=== PATIENT | female | born 1940 | race Caucasian/White ===

== ENCOUNTER 2017-11-08 09:42 | Emergency (ER) | payer SELFPAY, OTHER, MEDICARE | END 2017-11-08 12:04 | disposition home or self-care (01) | LOC: E/R 09:42 | DX: L53.9 Erythematous condition, unspecified (principal); Z87.891 Personal history of nicotine dependence | CPT/HCPCS: 99282 ==

== ENCOUNTER 2018-10-01 09:57 | Inpatient (IN) | payer BC ==
[2018-10-01 11:42] LABS: WHITE BLOOD COUNT 26.7 10^3/ul (4.8-10.8)
[2018-10-01 11:42] LABS: ABNORMAL IP MESSAGE 1; HEMATOCRIT 31.7 % (37.0-47.0); HEMOGLOBIN 10.1 g/dl (12.0-16.0); MEAN CORPUSCULAR HEMOGLOBIN 28.5 pg (29.0-33.0); MEAN CORPUSCULAR HGB CONC 31.9 g/dl (32.0-37.0); MEAN CORPUSCULAR VOLUME 89.5 fl (82.0-101.0); MEAN PLATELET VOLUME 9.3 fl (7.4-10.4); PLATELET COUNT 404 10^3/UL (140-415); RED BLOOD COUNT 3.54 10^6/ul (4.20-5.40); RED CELL DISTRIBUTION WIDTH 14.5 % (11.5-14.5)
[2018-10-01 11:46] LABS: ADD MAN DIFF? YES; POSITIVE DIFF @See below
[2018-10-01 11:48] LABS: ALANINE AMINOTRANSFERASE 32 IU/L (13-69); ALBUMIN 3.3 g/dl (3.3-4.9); ALBUMIN/GLOBULIN RATIO 0.91; ALKALINE PHOSPHATASE 135 IU/L (42-121); ANION GAP 11 (5-13); ASPARTATE AMINO TRANSFERASE 34 IU/L (15-46); BILIRUBIN,INDIRECT 0.1 mg/dl (0-1.1); BILIRUBIN,TOTAL 0.1 mg/dl (0.2-1.3); BLOOD UREA NITROGEN 30 mg/dl (7-20); CALCIUM 9.8 mg/dl (8.4-10.2); CARBON DIOXIDE 23 mmol/L (21-31); CHLORIDE 106 mmol/L (97-110); CREATININE 1.83 mg/dl (0.44-1.00); GLUCOSE 127 mg/dl (70-220); POTASSIUM 4.2 mmol/L (3.5-5.1); PROTIME 13.3 Sec (11.9-14.9); SODIUM 140 mmol/L (135-144); TOTAL PROTEIN 6.9 g/dl (6.1-8.1)
[2018-10-01 11:49] LABS: PARTIAL THROMBOPLASTIN TIME 27.4 Sec (23.0-35.0)
[2018-10-01 11:59] LABS: LIPASE 2346 U/L (23-300)
[2018-10-01 12:00] LABS: B-TYPE NATRIURETIC PEPTIDE 356 PG/ML (0-450); TROPONIN-I < 0.012 ng/ml (0.000-0.120)
[2018-10-01 12:28] LABS: ANISOCYTOSIS 1+ (0-0); BAND NEUTROPHILS % (M) 4 % (0-4); EOSINOPHILS % (M) 1 % (0-7); LYMPHOCYTES #M 1.3 10^3/ul (0.8-2.9); LYMPHOCYTES % (M) 5 % (15-51); MICROCYTOSIS 1+ (0-0); MONOCYTE #M 0.8 10^3/ul (0.3-0.9); MONOCYTES % (M) 3 % (0-11); PLATELET ESTIMATE NORMAL; POIKILOCYTOSIS 1+ (0-0); POLYCHROMASIA 2+ (0-0); REACTIVE LYMPHOCYTES #M 0.8 10^3/ul (0.0-0.0); REACTIVE LYMPHOCYTES% (M) 3 % (0-0); SEG NEUT #M 22.7 10^3/ul (1.6-7.5); SEGMENTED NEUTROPHILS (M) % 84 % (39-77); SMUDGE%M 2 % (0-0)
[2018-10-01] MEDS: PIPER-TAZO 2.25 GM (PMX) 50 ML IVPB ×2 (13:38→21:45)
[2018-10-01] MEDS: SOD CHLORIDE 0.9% 500 ML IV (13:38)
[2018-10-01] MEDS: FENTAnyl 50 MCG/ML VIAL IV (13:50)
[2018-10-01] MEDS: HYDROmorphONE 0.5 MG/0.5 ML SYG IV ×3 (15:25→23:47)
[2018-10-01] MEDS ORDERED: HYDROmorphONE 0.5 MG/0.5 ML SYG IM (18:30)
[2018-10-01] MEDS: SOD CHLORIDE 0.9% 1,000 ML IV (19:30)
[2018-10-01] MEDS: AMITRIPTYLINE 50 MG TAB PO (21:45)
[2018-10-02] MEDS: SOD CHLORIDE 0.9% 1,000 ML IV ×3 (03:30→19:30)
[2018-10-02] MEDS: HYDROmorphONE 0.5 MG/0.5 ML SYG IV ×3 (04:04→21:01)
[2018-10-02] MEDS: PIPER-TAZO 2.25 GM (PMX) 50 ML IVPB ×3 (06:25→21:01)
[2018-10-02] MEDS: PANTOPRAZOLE (EC) 40 MG TAB PO (06:25)
[2018-10-02 07:05] LABS: LACTATE DEHYDROGENASE 1689 IU/L (313-618)
[2018-10-02 07:12] LABS: ALANINE AMINOTRANSFERASE 42 IU/L (13-69); ALBUMIN 2.6 g/dl (3.3-4.9); ALBUMIN/GLOBULIN RATIO 0.86; ALKALINE PHOSPHATASE 115 IU/L (42-121); ANION GAP 6 (5-13); ASPARTATE AMINO TRANSFERASE 53 IU/L (15-46); BILIRUBIN,INDIRECT 0.1 mg/dl (0-1.1); BILIRUBIN,TOTAL 0.1 mg/dl (0.2-1.3); BLOOD UREA NITROGEN 25 mg/dl (7-20); CALCIUM 8.7 mg/dl (8.4-10.2); CARBON DIOXIDE 22 mmol/L (21-31); CHLORIDE 112 mmol/L (97-110); CREATININE 1.29 mg/dl (0.44-1.00); GLUCOSE 106 mg/dl (70-220); MAGNESIUM 1.6 mg/dl (1.7-2.5); POTASSIUM 4.4 mmol/L (3.5-5.1); SODIUM 140 mmol/L (135-144); TOTAL PROTEIN 5.6 g/dl (6.1-8.1)
[2018-10-02 07:24] LABS: AMYLASE 148 U/L (11-123)
[2018-10-02 07:24] LABS: IRON 26 ug/dl (35-150); LIPASE 909 U/L (23-300)
[2018-10-02 07:33] LABS: % IRON SATURATION 13 % SAT (22-52); TOTAL IRON BINDING CAPACITY 197 ug/dl (241-421)
[2018-10-02 07:55] LABS: CARCINOEMBRYONIC ANTIGEN 8.7 ng/ml (0.0-5.0)
[2018-10-02 07:59] LABS: CANCER ANTIGEN 19-9 53.9 U/ml (0.0-37.0)
[2018-10-02 08:11] LABS: FOLATE 16.5 ng/ml (2.8-20.0)
[2018-10-02] MEDS: MAGNESIUM SULFATE 2 GM/50 ML 50 ML IVPB (08:58)
[2018-10-02 09:29] LABS: ADD MAN DIFF? NO
[2018-10-02 10:18] LABS: WHITE BLOOD COUNT 19.8 10^3/ul (4.8-10.8)
[2018-10-02 10:18] LABS: BASOPHIL # 0.1 10^3/ul (0.0-0.1); BASOPHILS % 0.5 % (0.0-2.0); EOSINOPHILS # 0.6 10^3/ul (0.0-0.5); EOSINOPHILS % 2.9 % (0.0-7.0); HEMATOCRIT 27.4 % (37.0-47.0); HEMOGLOBIN 8.5 g/dl (12.0-16.0); LYMPHOCYTES # 1.3 10^3/ul (0.8-2.9); LYMPHOCYTES % 6.4 % (15.0-51.0); MEAN CORPUSCULAR HEMOGLOBIN 28.3 pg (29.0-33.0); MEAN CORPUSCULAR VOLUME 91.3 fl (82.0-101.0); MEAN PLATELET VOLUME 9.4 fl (7.4-10.4); MONOCYTE # 0.9 10^3/ul (0.3-0.9); MONOCYTES % 4.7 % (0.0-11.0); NEUTROPHIL # 16.8 10^3/ul (1.6-7.5); NEUTROPHILS % 84.7 % (39.0-77.0); PLATELET COUNT 361 10^3/UL (140-415); RED CELL DISTRIBUTION WIDTH 14.6 % (11.5-14.5); RETICULOCYTE COUNT # 0.026 X10^6 (0.020-0.110); RETICULOCYTE COUNT % 0.9 % (0.5-1.5)
[2018-10-02] MEDS: LIDOCAINE 1% (MPF) 5 ML VIAL (15:37)
[2018-10-02] MEDS: AMITRIPTYLINE 50 MG TAB PO (21:01)
[2018-10-03] MEDS: morphine 4 MG/ML VIAL IV ×5 (00:15→22:17)
[2018-10-03] MEDS: SOD CHLORIDE 0.9% 1,000 ML IV ×3 (00:18→19:30)
[2018-10-03 06:22] LABS: ADD MAN DIFF? NO
[2018-10-03 06:28] LABS: BASOPHIL # 0.1 10^3/ul (0.0-0.1); BASOPHILS % 0.3 % (0.0-2.0); EOSINOPHILS # 0.5 10^3/ul (0.0-0.5); EOSINOPHILS % 2.6 % (0.0-7.0); HEMATOCRIT 24.2 % (37.0-47.0); HEMOGLOBIN 7.8 g/dl (12.0-16.0); LYMPHOCYTES # 1.1 10^3/ul (0.8-2.9); LYMPHOCYTES % 6.2 % (15.0-51.0); MEAN CORPUSCULAR HEMOGLOBIN 28.5 pg (29.0-33.0); MEAN CORPUSCULAR HGB CONC 32.2 g/dl (32.0-37.0); MEAN CORPUSCULAR VOLUME 88.3 fl (82.0-101.0); MEAN PLATELET VOLUME 9.1 fl (7.4-10.4); MONOCYTE # 0.9 10^3/ul (0.3-0.9); MONOCYTES % 5.1 % (0.0-11.0); NEUTROPHIL # 15.3 10^3/ul (1.6-7.5); PLATELET COUNT 328 10^3/UL (140-415); RED BLOOD COUNT 2.74 10^6/ul (4.20-5.40); RED CELL DISTRIBUTION WIDTH 14.7 % (11.5-14.5)
[2018-10-03] MEDS: PIPER-TAZO 2.25 GM (PMX) 50 ML IVPB ×3 (06:30→21:06)
[2018-10-03] MEDS: PANTOPRAZOLE (EC) 40 MG TAB PO (06:30)
[2018-10-03 06:53] LABS: ALANINE AMINOTRANSFERASE 64 IU/L (13-69); ALBUMIN 2.3 g/dl (3.3-4.9); ALBUMIN/GLOBULIN RATIO 0.85; ALKALINE PHOSPHATASE 139 IU/L (42-121); ANION GAP 6 (5-13); ASPARTATE AMINO TRANSFERASE 115 IU/L (15-46); BILIRUBIN,INDIRECT 0.1 mg/dl (0-1.1); BILIRUBIN,TOTAL 0.1 mg/dl (0.2-1.3); BLOOD UREA NITROGEN 16 mg/dl (7-20); CALCIUM 8.3 mg/dl (8.4-10.2); CARBON DIOXIDE 22 mmol/L (21-31); CHLORIDE 115 mmol/L (97-110); CREATININE 1.02 mg/dl (0.44-1.00); GLUCOSE 124 mg/dl (70-220); LACTATE DEHYDROGENASE 1795 IU/L (313-618); LIPASE 1018 U/L (23-300); MAGNESIUM 1.7 mg/dl (1.7-2.5); POTASSIUM 3.8 mmol/L (3.5-5.1); SODIUM 143 mmol/L (135-144)
[2018-10-03] MEDS ORDERED: morphine LIQ (20 MG/ML PO SYG) SL (09:00)
[2018-10-03] MEDS: MAGNESIUM SULFATE 2 GM/50 ML 50 ML IVPB (10:08)
[2018-10-03 10:22] LABS: RETICULOCYTE RBC 3.01
[2018-10-03] MEDS: PROMETHAZINE/CODEINE 5ML CUP PO (17:17)
[2018-10-03] MEDS: AMITRIPTYLINE 50 MG TAB PO (21:05)
[2018-10-03] MEDS: ACETAMINOPHEN 500 MG TAB PO (23:09)
[2018-10-03 23:26] LABS: IMMEDIATE SPIN CROSSMATCH 1 2
[2018-10-04] MEDS: SOD CHLORIDE 0.9% 1,000 ML IV ×3 (03:30→21:18)
[2018-10-04] MEDS: PIPER-TAZO 2.25 GM (PMX) 50 ML IVPB ×3 (05:05→21:23)
[2018-10-04] MEDS: PANTOPRAZOLE (EC) 40 MG TAB PO (06:31)
[2018-10-04 06:53] LABS: ADD MAN DIFF? NO
[2018-10-04 07:00] LABS: BASOPHIL # 0.1 10^3/ul (0.0-0.1); BASOPHILS % 0.6 % (0.0-2.0); EOSINOPHILS # 0.7 10^3/ul (0.0-0.5); EOSINOPHILS % 3.6 % (0.0-7.0); HEMATOCRIT 35.2 % (37.0-47.0); HEMOGLOBIN 11.4 g/dl (12.0-16.0); LYMPHOCYTES # 1.2 10^3/ul (0.8-2.9); LYMPHOCYTES % 6.7 % (15.0-51.0); MEAN CORPUSCULAR HEMOGLOBIN 28.8 pg (29.0-33.0); MEAN CORPUSCULAR HGB CONC 32.4 g/dl (32.0-37.0); MEAN CORPUSCULAR VOLUME 88.9 fl (82.0-101.0); MEAN PLATELET VOLUME 8.9 fl (7.4-10.4); MONOCYTES % 5.6 % (0.0-11.0); NEUTROPHIL # 14.8 10^3/ul (1.6-7.5); NEUTROPHILS % 82.2 % (39.0-77.0); PLATELET COUNT 319 10^3/UL (140-415); RED BLOOD COUNT 3.96 10^6/ul (4.20-5.40); RED CELL DISTRIBUTION WIDTH 14.4 % (11.5-14.5)
[2018-10-04 07:21] LABS: ALANINE AMINOTRANSFERASE 122 IU/L (13-69); ALBUMIN 2.3 g/dl (3.3-4.9); ALBUMIN/GLOBULIN RATIO 0.88; ALKALINE PHOSPHATASE 183 IU/L (42-121); AMYLASE 200 U/L (11-123); ANION GAP 3 (5-13); ASPARTATE AMINO TRANSFERASE 193 IU/L (15-46); BILIRUBIN,INDIRECT 0.5 mg/dl (0-1.1); BILIRUBIN,TOTAL 0.5 mg/dl (0.2-1.3); BLOOD UREA NITROGEN 10 mg/dl (7-20); CALCIUM 8.1 mg/dl (8.4-10.2); CARBON DIOXIDE 22 mmol/L (21-31); CHLORIDE 113 mmol/L (97-110); CREATININE 0.76 mg/dl (0.44-1.00); GLUCOSE 89 mg/dl (70-220); LIPASE 1476 U/L (23-300); MAGNESIUM 1.6 mg/dl (1.7-2.5); POTASSIUM 3.4 mmol/L (3.5-5.1); SODIUM 138 mmol/L (135-144); TOTAL PROTEIN 4.9 g/dl (6.1-8.1)
[2018-10-04 07:36] LABS: LACTATE DEHYDROGENASE 2063 IU/L (313-618)
[2018-10-04 10:27] LABS: HAPTOGLOBIN 408 mg/dL (43-212); HAPTOGLOBIN 424 mg/dL (43-212)
[2018-10-04] MEDS: morphine 4 MG/ML VIAL IV (10:46)
[2018-10-04] MEDS: MAGNESIUM SULFATE 2 GM/50 ML 50 ML IVPB (12:39)
[2018-10-04 15:12] LABS: PROTEIN, TOTAL 5.1 g/dL (6.1-8.1)
[2018-10-04] MEDS: morphine LIQ (10 MG/5 ML) CUP PO ×3 (15:28→22:04)
[2018-10-04] MEDS: AMITRIPTYLINE 50 MG TAB PO (21:21)
[2018-10-04 22:58] LABS: ALBUMIN 2.3 g/dL (3.8-4.8); ALPHA-1-GLOBULINS 0.5 g/dL (0.2-0.3); ALPHA-2-GLOBULINS 0.9 g/dL (0.5-0.9); BETA 2 GLOBULINS 0.3 g/dL (0.2-0.5); BETA GLOBULINS 0.4 g/dL (0.4-0.6); GAMMA GLOBULINS 0.7 g/dL (0.8-1.7)
[2018-10-05] MEDS: SOD CHLORIDE 0.9% 1,000 ML IV ×2 (00:02→03:30)
[2018-10-05] MEDS: PROMETHAZINE/CODEINE 5ML CUP PO (00:05)
[2018-10-05] MEDS: morphine LIQ (10 MG/5 ML) CUP PO ×6 (02:06→21:23)
[2018-10-05] MEDS: PIPER-TAZO 2.25 GM (PMX) 50 ML IVPB ×3 (05:06→21:22)
[2018-10-05 06:28] LABS: ADD MAN DIFF? NO
[2018-10-05 06:30] LABS: BASOPHIL # 0.1 10^3/ul (0.0-0.1); BASOPHILS % 0.4 % (0.0-2.0); EOSINOPHILS # 0.6 10^3/ul (0.0-0.5); EOSINOPHILS % 2.5 % (0.0-7.0); HEMATOCRIT 34.6 % (37.0-47.0); HEMOGLOBIN 11.2 g/dl (12.0-16.0); LYMPHOCYTES # 1.1 10^3/ul (0.8-2.9); LYMPHOCYTES % 5.1 % (15.0-51.0); MEAN CORPUSCULAR HEMOGLOBIN 28.4 pg (29.0-33.0); MEAN CORPUSCULAR HGB CONC 32.4 g/dl (32.0-37.0); MEAN CORPUSCULAR VOLUME 87.8 fl (82.0-101.0); MEAN PLATELET VOLUME 9.2 fl (7.4-10.4); MONOCYTE # 1.2 10^3/ul (0.3-0.9); MONOCYTES % 5.3 % (0.0-11.0); NEUTROPHIL # 19.2 10^3/ul (1.6-7.5); NEUTROPHILS % 85.4 % (39.0-77.0); PLATELET COUNT 329 10^3/UL (140-415); RED BLOOD COUNT 3.94 10^6/ul (4.20-5.40); RED CELL DISTRIBUTION WIDTH 14.5 % (11.5-14.5)
[2018-10-05 06:30] LABS: WHITE BLOOD COUNT 22.5 10^3/ul (4.8-10.8)
[2018-10-05 06:53] LABS: ALANINE AMINOTRANSFERASE 106 IU/L (13-69); ALBUMIN 2.5 g/dl (3.3-4.9); ALBUMIN/GLOBULIN RATIO 0.92; ALKALINE PHOSPHATASE 180 IU/L (42-121); AMYLASE 197 U/L (11-123); ANION GAP 6 (5-13); ASPARTATE AMINO TRANSFERASE 124 IU/L (15-46); BILIRUBIN,INDIRECT 0.5 mg/dl (0-1.1); BILIRUBIN,TOTAL 0.5 mg/dl (0.2-1.3); BLOOD UREA NITROGEN 6 mg/dl (7-20); CALCIUM 7.7 mg/dl (8.4-10.2); CARBON DIOXIDE 22 mmol/L (21-31); CHLORIDE 109 mmol/L (97-110); CREATININE 0.64 mg/dl (0.44-1.00); GLUCOSE 147 mg/dl (70-220); LIPASE 1660 U/L (23-300); MAGNESIUM 1.5 mg/dl (1.7-2.5); POTASSIUM 3.5 mmol/L (3.5-5.1); SODIUM 137 mmol/L (135-144); TOTAL PROTEIN 5.2 g/dl (6.1-8.1)
[2018-10-05] MEDS: PANTOPRAZOLE (EC) 40 MG TAB PO (07:25)
[2018-10-05] MEDS: MAGNESIUM SULFATE 3 GM in DEXTROSE 5% 100 ML IVPB (11:00)
[2018-10-05] MEDS: AMITRIPTYLINE 50 MG TAB PO (20:20)
[2018-10-06 00:52] LABS: ERYTHROPOIETIN 21.6 mIU/mL (2.6-18.5); ERYTHROPOIETIN 32.3 mIU/mL (2.6-18.5)
[2018-10-06] MEDS: morphine LIQ (10 MG/5 ML) CUP PO ×6 (02:49→20:12)
[2018-10-06] MEDS: PIPER-TAZO 2.25 GM (PMX) 50 ML IVPB ×3 (05:29→21:40)
[2018-10-06 06:35] LABS: ADD MAN DIFF? NO
[2018-10-06 06:45] LABS: ABNORMAL IP MESSAGE 1; BASOPHIL # 0.1 10^3/ul (0.0-0.1); BASOPHILS % 0.5 % (0.0-2.0); EOSINOPHILS # 0.3 10^3/ul (0.0-0.5); EOSINOPHILS % 1.2 % (0.0-7.0); HEMATOCRIT 34.5 % (37.0-47.0); HEMOGLOBIN 11.2 g/dl (12.0-16.0); LYMPHOCYTES % 3.8 % (15.0-51.0); MEAN CORPUSCULAR HEMOGLOBIN 28.7 pg (29.0-33.0); MEAN CORPUSCULAR HGB CONC 32.5 g/dl (32.0-37.0); MEAN CORPUSCULAR VOLUME 88.5 fl (82.0-101.0); MEAN PLATELET VOLUME 9.6 fl (7.4-10.4); MONOCYTE # 1.3 10^3/ul (0.3-0.9); MONOCYTES % 4.9 % (0.0-11.0); NEUTROPHIL # 23.5 10^3/ul (1.6-7.5); NEUTROPHILS % 88.2 % (39.0-77.0); PLATELET COUNT 324 10^3/UL (140-415); RED CELL DISTRIBUTION WIDTH 14.6 % (11.5-14.5)
[2018-10-06 06:45] LABS: WHITE BLOOD COUNT 26.6 10^3/ul (4.8-10.8)
[2018-10-06 06:48] LABS: POSITIVE DIFF @See below
[2018-10-06 07:18] LABS: ALANINE AMINOTRANSFERASE 90 IU/L (13-69); ALBUMIN 2.5 g/dl (3.3-4.9); ALBUMIN/GLOBULIN RATIO 0.92; ALKALINE PHOSPHATASE 233 IU/L (42-121); AMYLASE 137 U/L (11-123); ANION GAP 7 (5-13); ASPARTATE AMINO TRANSFERASE 90 IU/L (15-46); BILIRUBIN,INDIRECT 0.4 mg/dl (0-1.1); BILIRUBIN,TOTAL 0.4 mg/dl (0.2-1.3); BLOOD UREA NITROGEN 5 mg/dl (7-20); CALCIUM 8.1 mg/dl (8.4-10.2); CARBON DIOXIDE 25 mmol/L (21-31); CHLORIDE 109 mmol/L (97-110); CREATININE 0.61 mg/dl (0.44-1.00); GLUCOSE 95 mg/dl (70-220); LIPASE 722 U/L (23-300); MAGNESIUM 1.7 mg/dl (1.7-2.5); POTASSIUM 3.3 mmol/L (3.5-5.1); SODIUM 141 mmol/L (135-144); TOTAL PROTEIN 5.2 g/dl (6.1-8.1)
[2018-10-06] MEDS: POTASSIUM CHLORIDE 20 MEQ POWDER FOR ORAL SOLN PO (10:11)
[2018-10-06] MEDS: morphine 4 MG/ML VIAL IV ×2 (17:25→21:30)
[2018-10-06] MEDS: AMITRIPTYLINE 50 MG TAB PO (20:11)
[2018-10-06 23:00] LABS: ADD UMIC YES; UR ASCORBIC ACID NEGATIVE (NEGATIVE); UR BILIRUBIN (Dip) NEGATIVE (NEGATIVE); UR BLOOD (Dip) NEGATIVE (NEGATIVE); UR CLARITY SLIGHTLY CLOUDY (CLEAR); UR COLOR YELLOW (YELLOW); UR GLUCOSE (Dip) NEGATIVE (NEGATIVE); UR KETONES (Dip) NEGATIVE (NEGATIVE); UR LEUKOCYTE ESTERASE (Dip) 1+ Leu/ul (NEGATIVE); UR MUCUS FEW /HPF (NONE SEEN); UR NITRITE (Dip) NEGATIVE (NEGATIVE); UR RBC 3 /HPF (0-5); UR SPECIFIC GRAVITY (Dip) 1.018 (1.003-1.030); UR SQUAMOUS EPITHELIAL CELL FEW /HPF (FEW); UR TOTAL PROTEIN (Dip) 1+ mg/dl (NEGATIVE); UR UROBILINOGEN (Dip) NEGATIVE (NEGATIVE); UR WBC 16 /HPF (0-5)
[2018-10-06] MEDS: PIPER-TAZO 3.375 GM IV (PMX) 100 ML IVPB (23:02)
[2018-10-07] MEDS: morphine LIQ (10 MG/5 ML) CUP PO ×5 (01:25→21:16)
[2018-10-07] MEDS: morphine 4 MG/ML VIAL IV ×4 (03:01→19:09)
[2018-10-07] MEDS: PIPER-TAZO 3.375 GM IV (PMX) 100 ML IVPB ×3 (05:20→21:07)
[2018-10-07 06:42] LABS: WHITE BLOOD COUNT 33.2 10^3/ul (4.8-10.8)
[2018-10-07 06:42] LABS: ABNORMAL IP MESSAGE 1; HEMATOCRIT 34.6 % (37.0-47.0); MEAN CORPUSCULAR HEMOGLOBIN 28.9 pg (29.0-33.0); MEAN CORPUSCULAR HGB CONC 31.8 g/dl (32.0-37.0); MEAN CORPUSCULAR VOLUME 90.8 fl (82.0-101.0); MEAN PLATELET VOLUME 9.4 fl (7.4-10.4); PLATELET COUNT 349 10^3/UL (140-415); RED BLOOD COUNT 3.81 10^6/ul (4.20-5.40); RED CELL DISTRIBUTION WIDTH 14.9 % (11.5-14.5)
[2018-10-07 06:52] LABS: POSITIVE DIFF @See below
[2018-10-07 06:53] LABS: ADD MAN DIFF? YES
[2018-10-07 06:59] LABS: ALANINE AMINOTRANSFERASE 57 IU/L (13-69); ALBUMIN 2.7 g/dl (3.3-4.9); ALBUMIN/GLOBULIN RATIO 0.96; ALKALINE PHOSPHATASE 200 IU/L (42-121); AMYLASE 125 U/L (11-123); ANION GAP 6 (5-13); ASPARTATE AMINO TRANSFERASE 45 IU/L (15-46); BILIRUBIN,INDIRECT 0.3 mg/dl (0-1.1); BILIRUBIN,TOTAL 0.3 mg/dl (0.2-1.3); BLOOD UREA NITROGEN 6 mg/dl (7-20); CALCIUM 8.4 mg/dl (8.4-10.2); CARBON DIOXIDE 29 mmol/L (21-31); CHLORIDE 103 mmol/L (97-110); CREATININE 0.57 mg/dl (0.44-1.00); GLUCOSE 119 mg/dl (70-220); LIPASE 735 U/L (23-300); POTASSIUM 3.5 mmol/L (3.5-5.1); SODIUM 138 mmol/L (135-144); TOTAL PROTEIN 5.5 g/dl (6.1-8.1)
[2018-10-07 09:25] LABS: ANISOCYTOSIS 1+ (0-0); BAND NEUTROPHILS #M 1.3 10^3/ul (0.0-0.6); BAND NEUTROPHILS % (M) 4 % (0-4); BURR CELLS 3+ (0-0); EOSINOPHILS % (M) 1 % (0-7); LYMPHOCYTES #M 1.6 10^3/ul (0.8-2.9); LYMPHOCYTES % (M) 5 % (15-51); MONOCYTE #M 1.6 10^3/ul (0.3-0.9); MONOCYTES % (M) 5 % (0-11); PLATELET ESTIMATE NORMAL; POIKILOCYTOSIS 3+ (0-0); POLYCHROMASIA 3+ (0-0); REACTIVE LYMPHOCYTES #M 0.3 10^3/ul (0.0-0.0); REACTIVE LYMPHOCYTES% (M) 1 % (0-0); SEG NEUT #M 28.3 10^3/ul (1.6-7.5); SEGMENTED NEUTROPHILS (M) % 84 % (39-77)
[2018-10-07] MEDS: hydrOXYzine HCL 25 MG TAB PO ×2 (17:51→21:07)
[2018-10-07] MEDS: AMITRIPTYLINE 50 MG TAB PO (21:52)
[2018-10-08] MEDS: morphine 4 MG/ML VIAL IV ×3 (02:30→12:05)
[2018-10-08] MEDS: LEVALBUTEROL (NEB) 0.31 MG/3 ML AMP HHN (02:33)
[2018-10-08] MEDS: PIPER-TAZO 3.375 GM IV (PMX) 100 ML IVPB ×3 (06:03→21:51)
[2018-10-08 06:29] LABS: WHITE BLOOD COUNT 30.3 10^3/ul (4.8-10.8)
[2018-10-08 06:29] LABS: ABNORMAL IP MESSAGE 1; HEMATOCRIT 32.2 % (37.0-47.0); HEMOGLOBIN 10.4 g/dl (12.0-16.0); MEAN CORPUSCULAR HEMOGLOBIN 29.1 pg (29.0-33.0); MEAN CORPUSCULAR HGB CONC 32.3 g/dl (32.0-37.0); MEAN CORPUSCULAR VOLUME 89.9 fl (82.0-101.0); MEAN PLATELET VOLUME 9.2 fl (7.4-10.4); PLATELET COUNT 333 10^3/UL (140-415); RED BLOOD COUNT 3.58 10^6/ul (4.20-5.40); RED CELL DISTRIBUTION WIDTH 14.9 % (11.5-14.5)
[2018-10-08 06:49] LABS: ADD MAN DIFF? YES; POSITIVE DIFF @See below
[2018-10-08 07:09] LABS: ALANINE AMINOTRANSFERASE 47 IU/L (13-69); ALBUMIN 2.5 g/dl (3.3-4.9); ALBUMIN/GLOBULIN RATIO 0.92; ALKALINE PHOSPHATASE 175 IU/L (42-121); AMYLASE 116 U/L (11-123); ANION GAP 5 (5-13); ASPARTATE AMINO TRANSFERASE 30 IU/L (15-46); BILIRUBIN,INDIRECT 0.2 mg/dl (0-1.1); BILIRUBIN,TOTAL 0.2 mg/dl (0.2-1.3); BLOOD UREA NITROGEN 7 mg/dl (7-20); CALCIUM 8.2 mg/dl (8.4-10.2); CARBON DIOXIDE 29 mmol/L (21-31); CHLORIDE 105 mmol/L (97-110); CREATININE 0.52 mg/dl (0.44-1.00); GLUCOSE 112 mg/dl (70-220); LIPASE 629 U/L (23-300); POTASSIUM 3.2 mmol/L (3.5-5.1); SODIUM 139 mmol/L (135-144); TOTAL PROTEIN 5.2 g/dl (6.1-8.1)
[2018-10-08 07:50] LABS: ANISOCYTOSIS 1+ (0-0); BAND NEUTROPHILS #M 0.6 10^3/ul (0.0-0.6); BAND NEUTROPHILS % (M) 2 % (0-4); BURR CELLS 1+ (0-0); EOSINOPHILS % (M) 1 % (0-7); LYMPHOCYTES #M 0.9 10^3/ul (0.8-2.9); LYMPHOCYTES % (M) 3 % (15-51); MICROCYTOSIS 1+ (0-0); MONOCYTE #M 2.1 10^3/ul (0.3-0.9); MONOCYTES % (M) 7 % (0-11); PLATELET ESTIMATE NORMAL; POLYCHROMASIA 1+ (0-0); REACTIVE LYMPHOCYTES #M 0.6 10^3/ul (0.0-0.0); REACTIVE LYMPHOCYTES% (M) 2 % (0-0); SEG NEUT #M 25.9 10^3/ul (1.6-7.5); SEGMENTED NEUTROPHILS (M) % 85 % (39-77); SMUDGE%M 9 % (0-0)
[2018-10-08] MEDS: hydrOXYzine HCL 25 MG TAB PO ×3 (08:17→20:33)
[2018-10-08] MEDS: MAGNESIUM SULFATE 2 GM/50 ML 50 ML IVPB (12:06)
[2018-10-08] MEDS: POTASSIUM CHLORIDE (SR) 10 MEQ TAB PO (12:09)
[2018-10-08] MEDS ORDERED: DEXAMETHASONE 10 MG/ML 1 ML INJ IV (14:30)
[2018-10-08] MEDS: METHADONE (1 MG/ML 5 ML PO UD SYG) PO ×2 (15:12→20:34)
[2018-10-08] MEDS: METHYLNALTREXONE 12 MG/0.6 ML VIAL SC (15:12)
[2018-10-08] MEDS: HYDROmorphONE 1 MG/ML SYG IV ×2 (18:13→21:51)
[2018-10-08] MEDS: DEXAMETHASONE 4 MG/ML 1 ML INJ IV ×2 (18:22→20:34)
[2018-10-08] MEDS: AMITRIPTYLINE 50 MG TAB PO (20:33)
[2018-10-08] MEDS: SENNA/DOCUSATE NA (8.6MG/50MG) TAB PO (20:33)
[2018-10-09] MEDS: DEXAMETHASONE 4 MG/ML 1 ML INJ IV ×4 (00:27→20:37)
[2018-10-09] MEDS: HYDROmorphONE 1 MG/ML SYG IV ×4 (01:34→23:08)
[2018-10-09] MEDS: METHADONE (1 MG/ML 5 ML PO UD SYG) PO ×4 (03:54→20:37)
[2018-10-09] MEDS: PIPER-TAZO 3.375 GM IV (PMX) 100 ML IVPB ×3 (06:24→23:08)
[2018-10-09 07:54] LABS: WHITE BLOOD COUNT 39.6 10^3/ul (4.8-10.8)
[2018-10-09 07:54] LABS: ABNORMAL IP MESSAGE 1; HEMATOCRIT 34.9 % (37.0-47.0); MEAN CORPUSCULAR HEMOGLOBIN 28.6 pg (29.0-33.0); MEAN CORPUSCULAR HGB CONC 31.5 g/dl (32.0-37.0); MEAN CORPUSCULAR VOLUME 90.6 fl (82.0-101.0); MEAN PLATELET VOLUME 9.5 fl (7.4-10.4); PLATELET COUNT 405 10^3/UL (140-415); RED BLOOD COUNT 3.85 10^6/ul (4.20-5.40); RED CELL DISTRIBUTION WIDTH 15.2 % (11.5-14.5)
[2018-10-09 08:01] LABS: POSITIVE DIFF @See below
[2018-10-09 08:02] LABS: ADD MAN DIFF? YES
[2018-10-09 08:21] LABS: ALANINE AMINOTRANSFERASE 39 IU/L (13-69); ALBUMIN/GLOBULIN RATIO 0.93; ALKALINE PHOSPHATASE 211 IU/L (42-121); ANION GAP 8 (5-13); ASPARTATE AMINO TRANSFERASE 35 IU/L (15-46); BILIRUBIN,INDIRECT 0.2 mg/dl (0-1.1); BILIRUBIN,TOTAL 0.2 mg/dl (0.2-1.3); BLOOD UREA NITROGEN 12 mg/dl (7-20); CALCIUM 9.2 mg/dl (8.4-10.2); CARBON DIOXIDE 27 mmol/L (21-31); CHLORIDE 104 mmol/L (97-110); CREATININE 0.53 mg/dl (0.44-1.00); GLUCOSE 156 mg/dl (70-220); LIPASE 387 U/L (23-300); MAGNESIUM 1.6 mg/dl (1.7-2.5); SODIUM 139 mmol/L (135-144); TOTAL PROTEIN 6.2 g/dl (6.1-8.1)
[2018-10-09] MEDS: hydrOXYzine HCL 25 MG TAB PO ×3 (09:27→20:36)
[2018-10-09 09:44] LABS: ANISOCYTOSIS 1+ (0-0); BAND NEUTROPHILS #M 2.7 10^3/ul (0.0-0.6); BAND NEUTROPHILS % (M) 7 % (0-4); BURR CELLS 2+ (0-0); LYMPHOCYTES #M 0.3 10^3/ul (0.8-2.9); LYMPHOCYTES % (M) 1 % (15-51); MONOCYTE #M 0.7 10^3/ul (0.3-0.9); MONOCYTES % (M) 2 % (0-11); PLATELET ESTIMATE NORMAL; POIKILOCYTOSIS 2+ (0-0); POLYCHROMASIA 1+ (0-0); SEG NEUT #M 36.7 10^3/ul (1.6-7.5); SEGMENTED NEUTROPHILS (M) % 90 % (39-77); SMUDGE%M 1 % (0-0)
[2018-10-09] MEDS: MAGNESIUM SULFATE 3 GM in DEXTROSE 5% 100 ML IVPB (14:43)
[2018-10-09] MEDS: AMITRIPTYLINE 50 MG TAB PO (20:35)
[2018-10-09] MEDS: SENNA/DOCUSATE NA (8.6MG/50MG) TAB PO (20:36)
[2018-10-10] MEDS: DEXAMETHASONE 4 MG/ML 1 ML INJ IV ×5 (00:52→23:12)
[2018-10-10] MEDS: METHADONE (1 MG/ML 5 ML PO UD SYG) PO ×4 (03:32→20:02)
[2018-10-10] MEDS: HYDROmorphONE 1 MG/ML SYG IV ×6 (03:43→23:12)
[2018-10-10] MEDS: PIPER-TAZO 3.375 GM IV (PMX) 100 ML IVPB ×3 (05:57→21:02)
[2018-10-10 06:53] LABS: WHITE BLOOD COUNT 40.8 10^3/ul (4.8-10.8)
[2018-10-10 06:53] LABS: ABNORMAL IP MESSAGE 1; HEMATOCRIT 30.6 % (37.0-47.0); HEMOGLOBIN 9.8 g/dl (12.0-16.0); MEAN CORPUSCULAR VOLUME 90.5 fl (82.0-101.0); MEAN PLATELET VOLUME 9.3 fl (7.4-10.4); PLATELET COUNT 367 10^3/UL (140-415); RED BLOOD COUNT 3.38 10^6/ul (4.20-5.40); RED CELL DISTRIBUTION WIDTH 14.8 % (11.5-14.5)
[2018-10-10 07:00] LABS: POSITIVE DIFF @See below
[2018-10-10 07:01] LABS: ADD MAN DIFF? YES
[2018-10-10 07:23] LABS: ALANINE AMINOTRANSFERASE 35 IU/L (13-69); ALBUMIN 2.6 g/dl (3.3-4.9); ALBUMIN/GLOBULIN RATIO 0.89; ALKALINE PHOSPHATASE 159 IU/L (42-121); ANION GAP 6 (5-13); ASPARTATE AMINO TRANSFERASE 29 IU/L (15-46); BILIRUBIN,INDIRECT 0.1 mg/dl (0-1.1); BILIRUBIN,TOTAL 0.1 mg/dl (0.2-1.3); BLOOD UREA NITROGEN 20 mg/dl (7-20); CALCIUM 8.8 mg/dl (8.4-10.2); CARBON DIOXIDE 34 mmol/L (21-31); CHLORIDE 101 mmol/L (97-110); CREATININE 0.65 mg/dl (0.44-1.00); GLUCOSE 158 mg/dl (70-220); LIPASE 696 U/L (23-300); MAGNESIUM 2.2 mg/dl (1.7-2.5); POTASSIUM 4.3 mmol/L (3.5-5.1); SODIUM 141 mmol/L (135-144); TOTAL PROTEIN 5.5 g/dl (6.1-8.1)
[2018-10-10] MEDS: hydrOXYzine HCL 25 MG TAB PO ×3 (08:52→20:01)
[2018-10-10 09:33] LABS: ANISOCYTOSIS 1+ (0-0); BAND NEUTROPHILS #M 3.2 10^3/ul (0.0-0.6); BAND NEUTROPHILS % (M) 8 % (0-4); BURR CELLS 1+ (0-0); LYMPHOCYTES #M 0.8 10^3/ul (0.8-2.9); LYMPHOCYTES % (M) 2 % (15-51); MONOCYTE #M 1.2 10^3/ul (0.3-0.9); MONOCYTES % (M) 3 % (0-11); PLATELET ESTIMATE NORMAL; POIKILOCYTOSIS 1+ (0-0); REACTIVE LYMPHOCYTES #M 0.8 10^3/ul (0.0-0.0); REACTIVE LYMPHOCYTES% (M) 2 % (0-0); SEGMENTED NEUTROPHILS (M) % 85 % (39-77); SMUDGE%M 11 % (0-0); TOXIC GRANULATION 1+ (0-0)
[2018-10-10] MEDS: METHYLNALTREXONE 12 MG/0.6 ML VIAL SC (15:11)
[2018-10-10] MEDS: SENNA/DOCUSATE NA (8.6MG/50MG) TAB PO (20:00)
[2018-10-10] MEDS: AMITRIPTYLINE 50 MG TAB PO (20:00)
[2018-10-11] MEDS: PIPER-TAZO 3.375 GM IV (PMX) 100 ML IVPB ×3 (05:54→20:10)
[2018-10-11] MEDS: METHADONE (1 MG/ML 5 ML PO UD SYG) PO ×4 (05:54→20:10)
[2018-10-11] MEDS: DEXAMETHASONE 4 MG/ML 1 ML INJ IV ×4 (05:55→23:55)
[2018-10-11 06:29] LABS: ABNORMAL IP MESSAGE 1; HEMATOCRIT 33.6 % (37.0-47.0); HEMOGLOBIN 10.7 g/dl (12.0-16.0); MEAN CORPUSCULAR HEMOGLOBIN 28.9 pg (29.0-33.0); MEAN CORPUSCULAR HGB CONC 31.8 g/dl (32.0-37.0); MEAN CORPUSCULAR VOLUME 90.8 fl (82.0-101.0); MEAN PLATELET VOLUME 9.3 fl (7.4-10.4); PLATELET COUNT 398 10^3/UL (140-415)
[2018-10-11 06:29] LABS: WHITE BLOOD COUNT 43.1 10^3/ul (4.8-10.8)
[2018-10-11 06:36] LABS: POSITIVE DIFF @See below
[2018-10-11 06:37] LABS: ADD MAN DIFF? YES
[2018-10-11 06:46] LABS: ALANINE AMINOTRANSFERASE 52 IU/L (13-69); ALBUMIN 2.8 g/dl (3.3-4.9); ALBUMIN/GLOBULIN RATIO 0.96; ALKALINE PHOSPHATASE 200 IU/L (42-121); ANION GAP 5 (5-13); ASPARTATE AMINO TRANSFERASE 99 IU/L (15-46); BILIRUBIN,INDIRECT 0.1 mg/dl (0-1.1); BILIRUBIN,TOTAL 0.1 mg/dl (0.2-1.3); BLOOD UREA NITROGEN 20 mg/dl (7-20); CARBON DIOXIDE 36 mmol/L (21-31); CHLORIDE 101 mmol/L (97-110); CREATININE 0.65 mg/dl (0.44-1.00); GLUCOSE 151 mg/dl (70-220); LIPASE 1243 U/L (23-300); MAGNESIUM 1.9 mg/dl (1.7-2.5); POTASSIUM 4.6 mmol/L (3.5-5.1); SODIUM 142 mmol/L (135-144); TOTAL PROTEIN 5.7 g/dl (6.1-8.1)
[2018-10-11] MEDS: hydrOXYzine HCL 25 MG TAB PO ×3 (08:22→20:09)
[2018-10-11 09:00] LABS: BAND NEUTROPHILS #M 4.3 10^3/ul (0.0-0.6); BAND NEUTROPHILS % (M) 10 % (0-4); GIANT THROMBO% (M) 2 % (0-0); LYMPHOCYTES #M 1.7 10^3/ul (0.8-2.9); LYMPHOCYTES % (M) 4 % (15-51); MONOCYTE #M 1.2 10^3/ul (0.3-0.9); MONOCYTES % (M) 3 % (0-11); PLATELET ESTIMATE NORMAL; REACTIVE LYMPHOCYTES #M 0.4 10^3/ul (0.0-0.0); REACTIVE LYMPHOCYTES% (M) 1 % (0-0); SEG NEUT #M 37.2 10^3/ul (1.6-7.5); SEGMENTED NEUTROPHILS (M) % 82 % (39-77); SMUDGE%M 16 % (0-0)
[2018-10-11] MEDS: HYDROmorphONE 1 MG/ML SYG IV ×3 (11:50→21:50)
[2018-10-11] MEDS: SENNA/DOCUSATE NA (8.6MG/50MG) TAB PO (20:09)
[2018-10-11] MEDS: AMITRIPTYLINE 50 MG TAB PO (20:09)
[2018-10-12] MEDS: METHADONE (1 MG/ML 5 ML PO UD SYG) PO ×3 (05:36→15:13)
[2018-10-12] MEDS: DEXAMETHASONE 4 MG/ML 1 ML INJ IV ×2 (05:36→12:19)
[2018-10-12 06:11] LABS: WHITE BLOOD COUNT 51.1 10^3/ul (4.8-10.8)
[2018-10-12 06:11] LABS: ABNORMAL IP MESSAGE 1; HEMOGLOBIN 10.9 g/dl (12.0-16.0); MEAN CORPUSCULAR HEMOGLOBIN 28.4 pg (29.0-33.0); MEAN CORPUSCULAR HGB CONC 31.1 g/dl (32.0-37.0); MEAN CORPUSCULAR VOLUME 91.1 fl (82.0-101.0); MEAN PLATELET VOLUME 9.5 fl (7.4-10.4); PLATELET COUNT 433 10^3/UL (140-415); RED BLOOD COUNT 3.84 10^6/ul (4.20-5.40)
[2018-10-12 06:21] LABS: ADD MAN DIFF? YES; POSITIVE DIFF @See below
[2018-10-12] MEDS: PIPER-TAZO 3.375 GM IV (PMX) 100 ML IVPB (06:24)
[2018-10-12 06:53] LABS: ALANINE AMINOTRANSFERASE 348 IU/L (13-69); ALBUMIN/GLOBULIN RATIO 0.96; ALKALINE PHOSPHATASE 359 IU/L (42-121); ANION GAP 6 (5-13); ASPARTATE AMINO TRANSFERASE 730 IU/L (15-46); BILIRUBIN,INDIRECT 0.4 mg/dl (0-1.1); BILIRUBIN,TOTAL 1.8 mg/dl (0.2-1.3); BLOOD UREA NITROGEN 16 mg/dl (7-20); CALCIUM 9.1 mg/dl (8.4-10.2); CARBON DIOXIDE 36 mmol/L (21-31); CHLORIDE 100 mmol/L (97-110); CREATININE 0.61 mg/dl (0.44-1.00); GLUCOSE 135 mg/dl (70-220); MAGNESIUM 1.8 mg/dl (1.7-2.5); POTASSIUM 4.3 mmol/L (3.5-5.1); SODIUM 142 mmol/L (135-144); TOTAL PROTEIN 6.1 g/dl (6.1-8.1)
[2018-10-12 07:01] LABS: LIPASE 2217 U/L (23-300)
[2018-10-12 07:03] LABS: BAND NEUTROPHILS #M 3.5 10^3/ul (0.0-0.6); BAND NEUTROPHILS % (M) 7 % (0-4); LYMPHOCYTES % (M) 2 % (15-51); MONOCYTES % (M) 4 % (0-11); PLATELET ESTIMATE NORMAL; POIKILOCYTOSIS 1+ (0-0); POLYCHROMASIA 1+ (0-0); SEG NEUT #M 46.2 10^3/ul (1.6-7.5); SEGMENTED NEUTROPHILS (M) % 87 % (39-77); SMUDGE%M 9 % (0-0); SPHEROCYTES 1+ (0-0)
[2018-10-12] MEDS: PROMETHAZINE/CODEINE 5ML CUP PO (08:41)
[2018-10-12] MEDS: hydrOXYzine HCL 25 MG TAB PO ×2 (08:41→12:19)
[2018-10-12] MEDS: HYDROmorphONE 1 MG/ML SYG IV ×2 (10:44→14:19)
== END 2018-10-12 16:02 | disposition hospice, home (50) | DRG 840 ==
LOC: E/R 09:57 → TEL 14:32
PROC: 0JB93ZX Excision of Buttock Subcutaneous Tissue and Fascia, Percutaneous Approach, Diagnostic (ICD-10-PCS; principal; 2018-10-02)
PROC: 30233N1 Transfusion of Nonautologous Red Blood Cells into Peripheral Vein, Percutaneous Approach (ICD-10-PCS; 2018-10-03)
DX: C77.8 Secondary and unspecified malignant neoplasm of lymph nodes of multiple regions (principal); K85.90 Acute pancreatitis without necrosis or infection, unspecified; J18.9 Pneumonia, unspecified organism; C34.11 Malignant neoplasm of upper lobe, right bronchus or lung; C78.7 Secondary malignant neoplasm of liver and intrahepatic bile duct; C79.72 Secondary malignant neoplasm of left adrenal gland; C79.71 Secondary malignant neoplasm of right adrenal gland; N17.9 Acute kidney failure, unspecified; C79.89 Secondary malignant neoplasm of other specified sites; C78.89 Secondary malignant neoplasm of other digestive organs; D63.0 Anemia in neoplastic disease; E87.6 Hypokalemia; E86.0 Dehydration; E83.42 Hypomagnesemia; E78.5 Hyperlipidemia, unspecified; F32.9 Major depressive disorder, single episode, unspecified; G89.3 Neoplasm related pain (acute) (chronic); J44.9 Chronic obstructive pulmonary disease, unspecified; K80.20 Calculus of gallbladder without cholecystitis without obstruction; M54.9 Dorsalgia, unspecified; M79.89 Other specified soft tissue disorders; M79.605 Pain in left leg; M79.604 Pain in right leg; R19.7 Diarrhea, unspecified; Z85.828 Personal history of other malignant neoplasm of skin; Z87.891 Personal history of nicotine dependence
CPT/HCPCS: 36415; 36430; 70552; 71045; 71250; 74176; 76942; 80053; 81001; 82150; 82378; 82607; 82668; 82728; 82746; 83010; 83540; 83615; 83690; 83735; 83880; 84155; 84165; 84484; 85025; 85045; 85610; 85730; 86301; 86850; 86900; 86901; 86920; 87040; 87086; 88307; 88313; 88341; 88342; 93005; 93970; 94664; 96374; 96375; 99285-25